=== PATIENT | female | born 1975 | race Caucasian/White ===

== ENCOUNTER 2017-07-16 20:26 | Emergency (ER) | payer MEDICAID ==
[~2017-07-16] VITALS: Wt 74.5 kg
[~2017-07-16 20:26] MED LIST: HYDR-3498 PO; NO MEDS
[2017-07-16] MEDS ORDERED: ALPR0.5T PO (21:29)
[2017-07-16] MEDS ORDERED: ALPRAZOLAM 0.25 MG TAB PO ONE (21:30)
--- NOTE | 2017-07-16 21:59 | ERD ---
ER Documentation Chief Complaint Date/Time DATE: 07/16/17 TIME: 21:57 Chief Complaint Palpitations and anxiety HPI 42-year-old female coming in complaining of palpitations. Patient states she has a long history of anxiety and her symptoms today are identical to previous anxious reaction. Patient took Xanax at home with symptoms alleviated 2 days ago. She states that she does not have any more medication. Denies any radiating chest pain or shortness of breath. States the palpitations occur spontaneously resolved spontaneously. Is unsure if she is under more stress than normal. Denies fever. Denies cough. Denies abdominal pain. ROS All systems reviewed and are negative except as per history of present illness. Medications Home Meds Active Scripts Alprazolam* (Xanax*) 0.5 Mg Tab, 0.5 MG PO Q8H Y for ANXIETY, #8 TAB Prov:ARCHANA MILES PA-C 07/16/17 Hydrocodone Bit-Acetaminophen* ([place]*) 5-325 Mg Tab, 1 TAB PO Q6 Y for PAIN, # 7 TAB Prov:RIMA TRIPP MD 10/18/15 Reported Medications [No Meds] No Conflict Check 12/30/12 Allergies Allergies: Coded Allergies: No Known Drug Allergies (Verified Allergy, Mild, 10/17/15) PMhx/Soc History of Surgery: No Anesthesia Reaction: No Hx Neurological Disorder: No Hx Respiratory Disorders: No Hx Cardiac Disorders: No Hx Psychiatric Problems: Yes (ANXIETY) Hx Miscellaneous Medical Probl: No (gastritis) Hx Alcohol Use: No Hx Substance Use: No Hx Tobacco Use: No Smoking Status: Never smoker Physical Exam Vitals Vital Signs Date Time Temp Pulse Resp B/P Pulse Ox O2 Delivery O2 Flow Rate FiO2 07/16/17 20:32 97.9 80 20 130/76 99 Physical Exam GENERAL: The patient is well-appearing, well-nourished, in no acute distress CHEST: Clear to auscultation bilaterally. There are no rales, wheezes or rhonchi. HEART: Regular rate and rhythm. No murmurs, clicks, rubs or gallops. No S3 or S4. SKIN: There is no apparent rash or petechiae. The skin is warm and dry. Results 24 hrs Current Medications Medications (Trade) Dose Ordered Sig/Luanne Route PRN Reason Start Time Stop Time Status Last Admin Dose Admin Alprazolam (Xanax) 0.5 mg ONCE ONCE PO 07/16/17 21:30 07/16/17 21:31 DC 07/16/17 21:34 Procedures/MDM ER course: EKG normal sinus rhythm 83 bpm no STEMI normal axis no arrhythmias. Reviewed and signed off by Dr. Diamond Xanax given in ED. MDM: 42-year-old female coming in complaining of palpitations. Patient has had a long history of anxiety and palpitations in the past. She states that her symptoms today are no different than previous episodes. She states that her symptoms are resolved with Xanax. Denies any chest pain or shortness of breath. I have low suspicion for acute coronary syndrome. I have low suspicion for PE or pulmonary emergency. Patient is not complaining of pleuritic chest pain, hemoptysis and patient is not hypoxic or tachypneic. Patient's not tachycardic. Patient will be given medication and recommended to follow-up with primary care within 1-2 days. Patient is discharged with strict ER precautions. Departure Diagnosis: Primary Impression: Anxiety attack Condition: Stable Patient Instructions: Anxiety Reaction Referrals: [facility] YOU HAVE RECEIVED A MEDICAL SCREENING EXAM AND THE RESULTS INDICATE THAT YOU DO NOT HAVE A CONDITION THAT REQUIRES URGENT TREATMENT IN THE EMERGENCY DEPARTMENT. FURTHER EVALUATION AND TREATMENT OF YOUR CONDITION CAN WAIT UNTIL YOU ARE SEEN IN YOUR DOCTORS OFFICE WITHIN THE NEXT 1-2 DAYS. IT IS YOUR RESPONSIBILITY TO MAKE AN APPOINTMENT FOR FOLOW-UP CARE. IF YOU HAVE A PRIMARY DOCTOR --you should call your primary doctor and schedule an appointment IF YOU DO NOT HAVE A PRIMARY DOCTOR YOU CAN CALL OUR PHYSICIAN REFERRAL HOTLINE AT IF YOU CAN NOT AFFORD TO SEE A PHYSICIAN YOU CAN CHOSE FROM THE FOLLOWING [facility] [address] [facility]. [facility] [address] [facility] [facility] [address] [facility]. [facility] [address] [facility]. [facility] [address] [facility]. [facility]. [address] Additional Instructions: FOLLOW UP WITH YOUR PRIMARY CARE PHYSICIAN TOMORROW.Return to this facility if you are not improving as expected. ARCHANA MILES PA-C Jul 16, 2017 21:59
== END 2017-07-16 22:00 | disposition home or self-care (01) ==
LOC: FTE 20:26
DX: F41.9 Anxiety disorder, unspecified (principal)
CPT/HCPCS: 93005; Z7502; Z7610; 99283

== ENCOUNTER 2017-08-12 00:19 | Emergency (ER) | payer MEDICAID ==
[~2017-08-12] VITALS: Ht 160 cm; Wt 75.0 kg
[~2017-08-12 00:19] MED LIST changes: +ALPR0.5T PO
[2017-08-12 00:20] VITALS: Ht 160 cm; Wt 75.0 kg
--- NOTE | 2017-08-12 01:21 | ERD ---
ER Documentation Chief Complaint Date/Time DATE: 08/12/17 TIME: 01:16 Chief Complaint intermittent chest pain x 3 days, sob today HPI Patient is a 42-year-old female who presents with sudden onset, intermittent, painless sensation of her throat being tight for the last 2 weeks. She states that she has had this sensation currently for 2 hours continuously. She denies chest pain. She reports that the sensation makes her feel like it is hard to breathe. She reports having chronic anxiety, but does not feel that she has had an exacerbation of anxiety. She states that she took a pill for anxiety today, but has not been taking pills for the last few days. She states her symptoms do not occur every day. They are not exacerbated by eating or exertion. She denies choking on food or difficulty swallowing. She denies sore throat. She denies fever. She denies history of allergies or allergic reaction per ROS All systems reviewed and are negative except as per history of present illness. Medications Home Meds Discontinued Reported Medications [No Meds] No Conflict Check 12/30/12 Discontinued Scripts Alprazolam* (Xanax*) 0.5 Mg Tab, 0.5 MG PO Q8H Y for ANXIETY, #8 TAB Prov:ARCHANA MILES PA-C 07/16/17 Hydrocodone Bit-Acetaminophen* ([place]*) 5-325 Mg Tab, 1 TAB PO Q6 Y for PAIN, # 7 TAB Prov:RIMA TRIPP MD 10/18/15 Allergies Allergies: Coded Allergies: No Known Allergy (Unverified , 08/12/17) PMhx/Soc Past medical history: Anxiety Past surgical history: Denies Social history: Denies tobacco or alcohol History of Surgery: No Anesthesia Reaction: No Hx Neurological Disorder: No Hx Respiratory Disorders: No Hx Cardiac Disorders: No Hx Psychiatric Problems: Yes (ANXIETY) Hx Miscellaneous Medical Probl: No (gastritis) Hx Alcohol Use: No Hx Substance Use: No Hx Tobacco Use: No FmHx Family History: No coronary disease, No diabetes Physical Exam Vitals Vital Signs Date Time Temp Pulse Resp B/P Pulse Ox O2 Delivery O2 Flow Rate FiO2 08/12/17 03:08 98.3 83 20 123/71 100 Room Air 08/12/17 00:20 98.8 92 20 132/67 98 Physical Exam Const: Alert, no acute distress Head: Atraumatic Eyes: Normal Conjunctiva, No pallor, no icterus ENT: Normal External Ears, Nose and Mouth. Clear oropharynx, moist mucous membranes, no erythema, no voice change, no exudate, no tongue swelling, no lip swelling Neck: Full range of motion..~ No meningismus. Supple, no adenopathy. No stridor. Resp: Clear to auscultation bilaterally, No wheezes, no rales Cardio: Regular rate and rhythm, no murmurs Abd: Soft, non tender, non distended. Skin: No petechiae or rashes Back: No midline or flank tenderness Ext: No cyanosis, or edema, 2+ pulses in 4 extremities. Neur: Awake and alert, Cranial nerves II through XII intact bilaterally, strength and sensation full in 4 extremities. Psych: Appears slightly anxious. Procedures/MDM EKG read by me: Time 0 24, rate 93 Rhythm: Normal sinus [place]: Normal Intervals: Normal ST-T waves: no ischemic changes Ectopy: No Q-waves: No Impression: No evidence of ischemia or arrhythmia MDM: Patient is a 42-year-old female who presents with sensation of her throat being tight intermittently for the last 2 weeks. The patient has numerous ER visits for anxiety with somatic symptoms. She currently reports having constant sensation of throat tightness for the last several hours. She has been taking an anti-anxiety medication without relief. On exam there is no evidence of airway compromise, airway edema, and on x-ray there is no evidence of airway narrowing or foreign body. The patient denies history that would be suggestive of foreign body or esophageal impaction. She denies chest pain. She reports that the throat tightness makes her feel slightly short of breath but has no tachypnea or hypoxemia. She has a nonischemic EKG. I did not believe that a cardiac workup was necessary based upon her symptoms. There is no evidence of allergic reaction. She is PERC negative. I will discharge the patient home and have advised her to follow-up closely with the PMD, and return to the ER for new or worsening symptoms. I suspect that her symptoms are due to some matization from anxiety. I have advised to follow-up with a psychiatrist. She denies depression or suicidality. Departure Diagnosis: Primary Impression: Throat tightness Additional Impression: Anxiety Condition: JEFFY Wisdom MD Aug 12, 2017 01:21
--- NOTE | 2017-08-12 02:27 | RADRPT ---
PROCEDURE: Soft tissue of the neck CLINICAL INDICATION: There are tightness TECHNIQUE: AP and lateral soft tissue views of the neck were performed. COMPARISON: None FINDINGS: No prevertebral soft tissue swelling is seen. No definite foreign body. There is mild degenerative c hange of the cervical spine with small osteophytes posteriorly at C5-6. The epiglottic shadow is unr emarkable. No fracture is seen. The visualized lung apices are clear.. IMPRESSION: No definite acute abnormality.. RPTAT: [facility] Physician Arlene Date Time Electronically viewed and signed by Marley Bragg Physician on 08/12/2017 02:26 LE/
[2017-08-12 03:08] VITALS: BP 123/71; PULSE 83; RESP 20; TEMP 98.3
== END 2017-08-12 03:08 | disposition home or self-care (01) ==
LOC: E/R 00:19
DX: R07.0 Pain in throat (principal); F41.9 Anxiety disorder, unspecified
CPT/HCPCS: 70360; 93005; Z7502

== ENCOUNTER 2018-02-03 05:59 | Emergency (ER) | END 2018-02-03 09:28 | disposition home or self-care (01) ==